=== PATIENT | male | born 1960 | race African-American/Black ===

== ENCOUNTER 2019-04-06 15:55 | Emergency (ER) | payer SELFPAY ==
[~2019-04-06] VITALS: Ht 177.8 cm; Wt 72.6 kg
[2019-04-06 16:02] VITALS: BP 17/90
[2019-04-06] MEDS ORDERED: ACETAMINOPHEN 325 MG TAB PO ONE (16:15)
[2019-04-06] MEDS ORDERED: ACETAMINOPHEN/CODEINE#3 (300/30mg) TAB PO ONE (19:00)
[2019-04-06] MEDS ORDERED: DexAMETHasone SOD PHOS 10MG/1ML VIAL INJ IM ONE (19:00)
== END 2019-04-06 19:16 | disposition home or self-care (01) ==
LOC: ER 15:55
DX: J06.9 Acute upper respiratory infection, unspecified (principal)
CPT/HCPCS: 96372; 99283; J1100